=== PATIENT | female | born 1965 | race Caucasian/White ===

== ENCOUNTER 2017-06-12 08:27 | Emergency (ER) | payer MEDICAID ==
[~2017-06-12] VITALS: Ht 175.3 cm; Wt 116.5 kg
[~2017-06-12 08:27] MED LIST: AZEL30SP BOTHNARES; DOCU-28 PO; IBUP-1986 PO; LACT1CAP26 PO; PRED50TA PO
[2017-06-12] MEDS ORDERED: AZIT-57 PO (10:32)
[2017-06-12 10:40] VITALS: BP 123/75
== END 2017-06-12 10:43 | disposition home or self-care (01) ==
LOC: ER 08:28
DX: J20.9 Acute bronchitis, unspecified (principal); K21.9 Gastro-esophageal reflux disease without esophagitis; Z79.899 Other long term (current) drug therapy
CPT/HCPCS: 99283

== ENCOUNTER 2017-08-15 08:23 | Emergency (ER) | payer MEDICAID ==
[~2017-08-15] VITALS: Ht 160 cm; Wt 113.0 kg
[2017-08-15] MEDS ORDERED: ALBU6.7H INH (09:23)
[2017-08-15] MEDS ORDERED: GUAI1TBM19 PO (09:23)
[2017-08-15] MEDS ORDERED: MONVCR VG (09:29)
[2017-08-15 10:38] VITALS: BP 142/72
== END 2017-08-15 10:39 | disposition home or self-care (01) ==
LOC: ER 08:23
DX: J06.9 Acute upper respiratory infection, unspecified (principal); B37.3 Candidiasis of vulva and vagina; K21.9 Gastro-esophageal reflux disease without esophagitis; Z79.899 Other long term (current) drug therapy
CPT/HCPCS: 71046; 99284

== ENCOUNTER → 2017-11-08 | Emergency (ER) | payer MEDICAID ==
[~2017-11-08] VITALS: Ht 172.7 cm; Wt 108.2 kg
[~2017-11-08] MED LIST changes: +ALBU6.7H INH; +GUAI1TBM19 PO
[2017-11-08 14:38] LABS: URINE HCG NEGATIVE (NEG)
[2017-11-08 14:39] LABS: CLARITY,URINE CLEAR (Clear); COLOR,URINE YELLOW (Yellow); GLUCOSE, URINE NEGATIVE (Neg); KETONES,URINE NEGATIVE (Neg); LEUKOCYTE ESTERASE ,URINE NEGATIVE (Neg); NITRITES, URINE NEGATIVE (Neg); OCCULT BLOOD,URINE NEGATIVE (Neg); PH,URINE 6.5 (4.8-8.0); PROTEIN,URINE NEGATIVE (Neg); UA COLLECTION TYPE CLN CATCH MIDSTREAM; UROBILINOGEN,URINE 0.2 E.U/dL (0.2-1.0)
[2017-11-08 14:50] LABS: BASOPHILS % (AUTO) 0.6 % (0-1); EOSINOPHILS # (AUTO) 0.1 X10'3 (0-0.9); EOSINOPHILS % (AUTO) 1.2 % (0-6); HEMATOCRIT 37.4 % (35.0-45.0); HEMOGLOBIN 12.3 g/dl (12.0-16.0); LYMPHOCYTES # (AUTO) 1.8 X10'3 (1.1-4.8); LYMPHOCYTES % (AUTO) 34.7 % (21-51); MEAN CORPUSCULAR HEMOGLOBIN 29.1 PG (27.0-31.0); MEAN CORPUSCULAR VOLUME 88.4 FL (78-98); MEAN PLATELET VOLUME 7.5 FL (7.4-10.4); MONOCYTES # (AUTO) 0.3 X10'3 (0-0.9); MONOCYTES % (AUTO) 6.2 % (2-12); NEUTROPHILS # (AUTO) 2.9 X10'3 (1.8-7.7); NEUTROPHILS % (AUTO) 57.3 % (42-75); PLATELET COUNT 272 X10'3 (140-440); RED BLOOD COUNT 4.23 X10'6 (4.20-5.60); RED CELL DISTRIBUTION WIDTH 15.5 % (11.5-14.5); WHITE BLOOD COUNT 5.1 X10'3 (4.5-11.0)
[2017-11-08 15:05] LABS: ALANINE AMINOTRANSFERASE 23 U/L (12-78); ALBUMIN 3.7 G/DL (3.4-5.0); ALBUMIN/GLOBULIN RATIO 1.2 (1.1-1.5); ALKALINE PHOSPHATASE 60 IU/L (46-116); ANION GAP 5 (8-16); ASPARTATE AMINO TRANSFERASE 18 U/L (10-37); BILIRUBIN,TOTAL 0.3 MG/DL (0.1-1.0); BLOOD UREA NITROGEN 10 MG/DL (7-18); BUN/CREATININE RATIO 9.3 (6.6-38.0); CALCIUM 9.7 MG/DL (8.5-10.1); CHLORIDE 105 MMOL/L (99-107); CREATININE 1.07 MG/DL (0.40-0.90); GLUCOSE 147 MG/DL (70-104); LIPASE 111 U/L (73-393); POTASSIUM 3.9 MMOL/L (3.5-5.1); SODIUM 141 MMOL/L (135-145); TOTAL CARBON DIOXIDE 31.5 MMOL/L (24-32); TOTAL PROTEIN 6.8 G/DL (6.4-8.2); eGFR 54 ML/MIN
[2017-11-08 15:13] VITALS: BP 121/84
== END | disposition home or self-care (01) ==
LOC: ER 13:53
DX: R10.84 Generalized abdominal pain (principal); K21.9 Gastro-esophageal reflux disease without esophagitis; Z79.899 Other long term (current) drug therapy
CPT/HCPCS: 36415; 80053; 81003; 81025; 83690; 85025; 99284

== ENCOUNTER 2018-02-23 12:24 | Emergency (ER) | payer MEDICAID ==
[~2018-02-23] VITALS: Ht 175.3 cm; Wt 102.0 kg
[2018-02-23] MEDS ORDERED: AZIT-72 PO (13:14)
[2018-02-23] MEDS ORDERED: PRED20TA PO (13:14)
[2018-02-23 13:19] VITALS: BP 112/68
== END 2018-02-23 13:21 | disposition home or self-care (01) ==
LOC: ER 12:24
DX: J40 Bronchitis, not specified as acute or chronic (principal); K21.9 Gastro-esophageal reflux disease without esophagitis; Z79.2 Long term (current) use of antibiotics; Z79.899 Other long term (current) drug therapy
CPT/HCPCS: 71046; 99283

== ENCOUNTER 2018-03-13 08:42 | Emergency (ER) | payer MEDICAID ==
[~2018-03-13 08:42] MED LIST changes: +AZIT-72 PO
[2018-03-13] MEDS ORDERED: FLUC150T66 PO (13:05)
[2018-03-13] MEDS ORDERED: BACDS PO (13:05)
[2018-03-13] MEDS ORDERED: ONDA4TAB12 PO (13:14)
== END 2018-03-13 09:10 | disposition left against medical advice (07) ==
LOC: ER 08:43
DX: R05 Cough (principal); Z53.21 Procedure and treatment not carried out due to patient leaving prior to being seen by health care provider

== ENCOUNTER 2018-03-13 10:38 | Emergency (ER) | payer MEDICAID ==
[~2018-03-13] VITALS: Ht 175.3 cm; Wt 99.2 kg
[2018-03-13 11:13] VITALS: BP 127/73
[2018-03-13 11:35] LABS: CLARITY,URINE CLEAR (Clear); COLOR,URINE YELLOW (Yellow); GLUCOSE, URINE NEGATIVE (Neg); KETONES,URINE NEGATIVE (Neg); LEUKOCYTE ESTERASE ,URINE NEGATIVE (Neg); NITRITES, URINE NEGATIVE (Neg); OCCULT BLOOD,URINE NEGATIVE (Neg); PROTEIN,URINE NEGATIVE (Neg); UROBILINOGEN,URINE 0.2 E.U/dL (0.2-1.0)
[2018-03-13 11:36] LABS: UA COLLECTION TYPE CLN CATCH MIDSTREAM
[2018-03-13] MEDS ORDERED: BACDS PO (13:05)
[2018-03-13] MEDS ORDERED: FLUC150T66 PO (13:05)
[2018-03-13] MEDS ORDERED: ONDA4TAB12 PO (13:14)
== END 2018-03-13 13:26 | disposition home or self-care (01) ==
LOC: ER 10:39
DX: N76.4 Abscess of vulva (principal); K21.9 Gastro-esophageal reflux disease without esophagitis; Z79.2 Long term (current) use of antibiotics; Z79.899 Other long term (current) drug therapy
CPT/HCPCS: 36415; 81003; 87491; 99283

== ENCOUNTER 2018-05-30 11:33 | Emergency (ER) | payer MEDICAID ==
[~2018-05-30] VITALS: Ht 175.3 cm; Wt 99.0 kg
[~2018-05-30 11:33] MED LIST changes: -AZIT-72 PO; +ONDA4TAB12 PO
[2018-05-30 11:47] VITALS: BP 118/75
== END 2018-05-30 12:50 | disposition home or self-care (01) ==
LOC: ER 11:34
DX: N92.6 Irregular menstruation, unspecified (principal); K21.9 Gastro-esophageal reflux disease without esophagitis; Z79.899 Other long term (current) drug therapy
CPT/HCPCS: 99281

== ENCOUNTER 2018-09-08 10:13 | Emergency (ER) | payer MEDICAID ==
[~2018-09-08] VITALS: Ht 175.3 cm; Wt 96.0 kg
[2018-09-08 10:17] VITALS: BP 121/69
--- NOTE | 2018-09-08 12:15 | NUR ---
Called patient in lobby to come back to room and be seen. Patient was out in parking lot. Another patient went out to call her name stating that they think she just left. Patient walked with urgency throwing hands in the air, and yelling at the person who helped call patient back [facility]. Patient pushed throw doorway, stating "if you don't want to help me, I'll just leave." I stated, "i'm not sure why you are so upset...." as i was trying to speak she said, "fine, I'll leave." stomped back over to the lob exit door and struggled with handle. Patient exited the lobby. Addendum: 09/08/18 at 1220 by HKISER Tata PAT followed me out to call patient back to room to evaluate her.
== END 2018-09-08 12:20 | disposition left against medical advice (07) ==
LOC: ER 10:13
DX: H00.019 Hordeolum externum unspecified eye, unspecified eyelid (principal); Z53.21 Procedure and treatment not carried out due to patient leaving prior to being seen by health care provider; Z79.899 Other long term (current) drug therapy